=== PATIENT | female | born 1945 | race Caucasian/White ===

== ENCOUNTER 2019-12-17 11:42 | Emergency (ER) | payer OTHER ==
[~2019-12-17] VITALS: Ht 157.5 cm; Wt 79.4 kg
[2019-12-17] MEDS ORDERED: COZAAR50 MG PO (11:57)
[2019-12-17] MEDS ORDERED: TOPROL XL100 M1 PO (11:57)
[2019-12-17] MEDS ORDERED: CHILDREN'S ASPI81 MG PO (11:57)
== END 2019-12-17 16:28 | disposition home or self-care (01) ==
LOC: ER 11:42
DX: S90.32XA Contusion of left foot, initial encounter (principal); S00.03XA Contusion of scalp, initial encounter; S50.02XA Contusion of left elbow, initial encounter; W01.198A Fall on same level from slipping, tripping and stumbling with subsequent striking against other object, initial encounter; Y93.01 Activity, walking, marching and hiking; Y92.413 State road as the place of occurrence of the external cause; Y99.8 Other external cause status

== ENCOUNTER 2019-12-27 12:36 | Emergency (ER) | payer OTHER ==
[~2019-12-27] VITALS: Ht 160 cm; Wt 79.8 kg
[~2019-12-27 12:36] MED LIST: CHILDREN'S ASPI81 MG PO; COZAAR50 MG PO; TOPROL XL100 M1 PO
== END 2019-12-27 15:42 | disposition home or self-care (01) ==
LOC: ER 12:36
DX: L03.116 Cellulitis of left lower limb (principal); T79.8XXS Other early complications of trauma, sequela; X58.XXXS Exposure to other specified factors, sequela